=== PATIENT | male | born 1945 | race Hispanic/Latino ===

== ENCOUNTER → 2020-09-29 | Outpatient (CLI) | payer MEDICARE ==
[~2020-09-29] MED LIST: FENTANYL CITRATE/PF 100MCG/2 ML INJ ONE; MIDAZOLAM HCL 2 MG/2 ML VIAL ONE
[2020-09-29 09:15] LABS: HEMOGLOBIN 14.2 g/dL (14.0-18.0)
[2020-09-29 09:39] LABS: PARTIAL THROMBOPLASTIN TIME 27.5 seconds (23.8-35.5); PROTHROMBIN TIME 13.7 seconds (11.9-14.5)
== END ==
LOC: CT 08:59
PROVIDERS: ATTEND Urology
DX: C61 Malignant neoplasm of prostate (principal)
CPT/HCPCS: 20220; 36415; 77012; 85014; 85049; 85610; 85730; 88172; 88173; 88305; 88311; J2250; J3010; U0002; 99152; 99153

== ENCOUNTER 2021-01-26 05:15 | Inpatient (IN) | payer MEDICARE ==
[2021-01-23 13:38] LABS: BASOPHILS # (AUTO) 0.1 (0.0-0.1); BASOPHILS % 0.8 % (0.0-1.0); EOSINOPHILS % 0.5 % (0.0-6.0); HEMATOCRIT 39.3 % (38.2-49.6); HEMOGLOBIN 13.4 g/dL (14.0-18.0); LYMPHOCYTES # (AUTO) 2.8 (1.0-3.2); LYMPHOCYTES % 37.4 % (18.0-39.1); MEAN CORPUSCULAR HEMOGLOBIN 34.6 pg (28-32); MEAN CORPUSCULAR HGB CONC 34.1 g/dL (31-35); MEAN CORPUSCULAR VOLUME 101.6 fL (81-99); NEUTROPHILS # (AUTO) 3.7 (2.1-6.9); PLATELET COUNT 208 x10e3/uL (140-360); RED BLOOD COUNT 3.87 x10e6/uL (4.3-5.7); RED CELL DISTRIBUTION WIDTH 12.9 % (11.7-14.4)
[2021-01-23 13:59] LABS: ANION GAP 14.4 mmol/L (8-16); BLOOD UREA NITROGEN 20 mg/dL (7-26); BUN/CREATININE RATIO 21 (6-25); CALCIUM 9.3 mg/dL (8.4-10.2); CARBON DIOXIDE 26 mmol/L (22-29); CHLORIDE 109 mmol/L (98-107); CREATININE, SERUM 0.94 mg/dL (0.72-1.25); EST GLOMERULAR FILTRATION RATE > 60 ML/MIN (60-); GLUCOSE 96 mg/dL (74-118); POTASSIUM 4.4 mmol/L (3.5-5.1); SODIUM 145 mmol/L (136-145)
[~2021-01-26] VITALS: Ht 177.8 cm; Wt 95.7 kg
[~2021-01-26 05:15] MED LIST changes: +ASPIRIN81 MG PO; -FENTANYL CITRATE/PF 100MCG/2 ML INJ ONE; +LEVOXYL75 MCG; +LOSARTAN POTAS100 MG PO; -MIDAZOLAM HCL 2 MG/2 ML VIAL ONE
[2021-01-26] MEDS ORDERED: SODIUM CHLORIDE 0.9% 50ML 50 ML ONE (05:36)
[2021-01-26] MEDS ORDERED: CEFTRIAXONE SOD 1 GM VIAL ONE (05:36)
[2021-01-26] MEDS ORDERED: GENTAMICIN 80MG/NS 100 ML 200 ML IV ONE (05:36)
[2021-01-26] MEDS ORDERED: SODIUM CHLORIDE 0.9% 1000ML 1,000 ML ONE (05:36)
[2021-01-26] MEDS ORDERED: B&O 60MG R/S 60 MG SUPP PR ONE (06:34)
[2021-01-26] MEDS ORDERED: IOPAMIDOL 300MG/ML 50ML INFUS..BTL IV ONE (06:34)
[2021-01-26] MEDS ORDERED: D5.45%NS/KCL 20MEQ 1,000 ML IV SCH (10:00)
[2021-01-26] MEDS ORDERED: DIPHENHYDRAMINE HCL 25 MG CAP PO PRN (10:00)
[2021-01-26] MEDS ORDERED: B&O 60MG R/S 60 MG SUPP PR PRN (10:00)
[2021-01-26] MEDS ORDERED: PHENAZOPYRIDINE HCL 100 MG TAB PO PRN (10:00)
[2021-01-26] MEDS ORDERED: CEFTRIAXONE SOD 1 GM/50 ML BAG IV SCH (10:00)
[2021-01-26] MEDS ORDERED: ONDANSETRON HCL INJ 2MG/ML 2ML 2 MG/ML VIAL IV PRN (10:00)
[2021-01-26 10:54] LABS: BASOPHILS % 0.5 % (0.0-1.0); EOSINOPHILS % 0.2 % (0.0-6.0); HEMATOCRIT 41.8 % (38.2-49.6); LYMPHOCYTES # (AUTO) 1.2 (1.0-3.2); LYMPHOCYTES % 19.5 % (18.0-39.1); MEAN CORPUSCULAR HEMOGLOBIN 34.5 pg (28-32); MEAN CORPUSCULAR HGB CONC 33.5 g/dL (31-35); MONOCYTES # (AUTO) 0.1 (0.2-0.8); MONOCYTES % 2.1 % (4.4-11.3); NEUTROPHILS # (AUTO) 4.9 (2.1-6.9); NEUTROPHILS % 77.4 % (38.7-80.0); PLATELET COUNT 203 x10e3/uL (140-360); RED BLOOD COUNT 4.06 x10e6/uL (4.3-5.7); RED CELL DISTRIBUTION WIDTH 12.8 % (11.7-14.4)
[2021-01-26 11:18] LABS: BLOOD UREA NITROGEN 18 mg/dL (7-26); BUN/CREATININE RATIO 17 (6-25); CARBON DIOXIDE 27 mmol/L (22-29); CHLORIDE 106 mmol/L (98-107); CREATININE, SERUM 1.03 mg/dL (0.72-1.25); EST GLOMERULAR FILTRATION RATE > 60 ML/MIN (60-); GLUCOSE 171 mg/dL (74-118); SODIUM 142 mmol/L (136-145)
[2021-01-26 12:19] VITALS: BP 154/81
[2021-01-26 12:21] VITALS: BP 154/81
[2021-01-26] MEDS: DEXTROSE 5%/0.45% SOD CHL 1,000 ML IV SCH ×3 (12:45→23:34)
[2021-01-26] MEDS ORDERED: PROPOFOL IV EMULSION 10 MG/ML 20 ML VIAL ONE (13:40)
[2021-01-26] MEDS ORDERED: SEVOFLURANE INHAL SOLN 250 ML PEN BTL ONE (13:40)
[2021-01-26] MEDS ORDERED: EPHEDRINE SULFATE INJ 50 MG/ML VIAL ONE (13:40)
[2021-01-26] MEDS ORDERED: LIDOCAINE HCL 2% LOCAL INJ 5 ML SDV VIAL INJ ONE (13:40)
[2021-01-26] MEDS ORDERED: ONDANSETRON HCL INJ 2MG/ML 2ML 2 MG/ML VIAL ONE (13:40)
[2021-01-26] MEDS ORDERED: DEXAMETHASONE SOD PHOS INJ 4 MG/ML VIAL ONE (13:40)
[2021-01-26 14:37] VITALS: BP 154/81
[2021-01-26] MEDS ORDERED: MIDAZOLAM HCL 2 MG/2 ML VIAL ONE (14:39)
[2021-01-26] MEDS ORDERED: FENTANYL CITRATE/PF 100MCG/2 ML INJ ONE (14:39)
[2021-01-26 16:34] VITALS: BP 109/69
[2021-01-26] MEDS ORDERED: DOCUSATE SODIUM 100 MG CAP PO SCH (17:00)
[2021-01-26 20:00] VITALS: BP 137/67
[2021-01-26] MEDS: DOCUSATE SODIUM 100 MG CAP PO SCH (20:47)
[2021-01-26 21:19] VITALS: BP 137/67
[2021-01-26] MEDS: ACETAMINOPHEN/CODEINE 300MG - 30MG TAB PO PRN (23:35)
[2021-01-27] VITALS (8 sets, daily range): BP systolic 116–149; BP diastolic 58–81
[2021-01-27] MEDS: CEFTRIAXONE SOD 1 GM in SODIUM CHLORIDE 0.9% 50ML 50 ML IV SCH (06:00)
[2021-01-27] MEDS: DEXTROSE 5%/0.45% SOD CHL 1,000 ML IV SCH ×3 (06:15→23:15)
[2021-01-27 06:51] LABS: BASOPHILS % 0.2 % (0.0-1.0); HEMATOCRIT 39.6 % (38.2-49.6); HEMOGLOBIN 13.5 g/dL (14.0-18.0); LYMPHOCYTES # (AUTO) 2.2 (1.0-3.2); LYMPHOCYTES % 18.1 % (18.0-39.1); MEAN CORPUSCULAR HEMOGLOBIN 34.4 pg (28-32); MEAN CORPUSCULAR HGB CONC 34.1 g/dL (31-35); MEAN CORPUSCULAR VOLUME 100.8 fL (81-99); MONOCYTES # (AUTO) 1.1 (0.2-0.8); MONOCYTES % 9.1 % (4.4-11.3); NEUTROPHILS # (AUTO) 8.8 (2.1-6.9); NEUTROPHILS % 72.2 % (38.7-80.0); PLATELET COUNT 194 x10e3/uL (140-360); RED BLOOD COUNT 3.93 x10e6/uL (4.3-5.7); RED CELL DISTRIBUTION WIDTH 12.4 % (11.7-14.4)
[2021-01-27 07:09] LABS: BLOOD UREA NITROGEN 13 mg/dL (7-26); BUN/CREATININE RATIO 17 (6-25); CALCIUM 8.5 mg/dL (8.4-10.2); CARBON DIOXIDE 25 mmol/L (22-29); CHLORIDE 108 mmol/L (98-107); CREATININE, SERUM 0.75 mg/dL (0.72-1.25); EST GLOMERULAR FILTRATION RATE > 60 ML/MIN (60-); GLUCOSE 134 mg/dL (74-118); SODIUM 142 mmol/L (136-145)
[2021-01-27] MEDS ORDERED: CEFTRIAXONE SOD 1 GM in SODIUM CHLORIDE 0.9% 50ML 50 ML IV SCH (07:10)
[2021-01-27] MEDS: DOCUSATE SODIUM 100 MG CAP PO SCH ×2 (09:00→20:37)
[2021-01-27] MEDS: SENNOSIDES 8.6 MG TAB PO SCH ×2 (16:45→20:10)
[2021-01-28 00:23] VITALS: BP 141/80
[2021-01-28 04:00] VITALS: BP 131/79
[2021-01-28] MEDS: DEXTROSE 5%/0.45% SOD CHL 1,000 ML IV SCH ×2 (04:45→12:45)
[2021-01-28] MEDS: CEFTRIAXONE SOD 1 GM in SODIUM CHLORIDE 0.9% 50ML 50 ML IV SCH (05:13)
[2021-01-28] MEDS ORDERED: LEVOTHYROXINE SODIUM 75 MCG TAB PO SCH (06:00)
[2021-01-28 06:58] LABS: BASOPHILS # (AUTO) 0.1 (0.0-0.1); BASOPHILS % 0.6 % (0.0-1.0); EOSINOPHILS % 0.4 % (0.0-6.0); HEMATOCRIT 40.2 % (38.2-49.6); HEMOGLOBIN 13.8 g/dL (14.0-18.0); LYMPHOCYTES # (AUTO) 3.2 (1.0-3.2); LYMPHOCYTES % 28.8 % (18.0-39.1); MEAN CORPUSCULAR HEMOGLOBIN 35.1 pg (28-32); MEAN CORPUSCULAR HGB CONC 34.3 g/dL (31-35); MEAN CORPUSCULAR VOLUME 102.3 fL (81-99); MONOCYTES # (AUTO) 1.1 (0.2-0.8); MONOCYTES % 10.1 % (4.4-11.3); NEUTROPHILS # (AUTO) 6.6 (2.1-6.9); NEUTROPHILS % 59.7 % (38.7-80.0); PLATELET COUNT 199 x10e3/uL (140-360); RED BLOOD COUNT 3.93 x10e6/uL (4.3-5.7); RED CELL DISTRIBUTION WIDTH 12.7 % (11.7-14.4)
[2021-01-28 07:46] LABS: BLOOD UREA NITROGEN 14 mg/dL (7-26); BUN/CREATININE RATIO 17 (6-25); CALCIUM 8.8 mg/dL (8.4-10.2); CARBON DIOXIDE 26 mmol/L (22-29); CHLORIDE 106 mmol/L (98-107); CREATININE, SERUM 0.83 mg/dL (0.72-1.25); EST GLOMERULAR FILTRATION RATE > 60 ML/MIN (60-); GLUCOSE 113 mg/dL (74-118); SODIUM 141 mmol/L (136-145)
[2021-01-28 08:42] VITALS: BP 128/76
[2021-01-28] MEDS: DOCUSATE SODIUM 100 MG CAP PO SCH (09:00)
[2021-01-28] MEDS ORDERED: LOSARTAN POTASSIUM 100 MG TAB PO SCH (09:00)
[2021-01-28] MEDS: SENNOSIDES 8.6 MG TAB PO SCH (09:00)
[2021-01-28] MEDS: ACETAMINOPHEN/CODEINE 300MG - 30MG TAB PO PRN ×2 (10:12→16:33)
[2021-01-28 13:13] VITALS: BP 130/82
[2021-01-28 13:30] VITALS: BP 130/82
[2021-01-28] MEDS ORDERED: LEVOFLOXACIN250 MG PO (15:21)
[2021-01-28] MEDS ORDERED: TYLENOL # 31 EA PO (15:23)
[2021-01-28 16:48] VITALS: BP 126/86
== END 2021-01-28 17:40 | disposition home or self-care (01) | DRG 714 ==
LOC: OR 05:15 → PACU V 11:01 → MED/SURG 11:46
PROVIDERS: ADMIT Internal Medicine; ATTEND Internal Medicine
PROC: 0V508ZZ Destruction of Prostate, Via Natural or Artificial Opening Endoscopic (ICD-10-PCS; principal; 2021-01-26 07:00)
PROC: BT141ZZ Fluoroscopy of Kidneys, Ureters and Bladder using Low Osmolar Contrast (ICD-10-PCS; 2021-01-26 07:00)
DX: N40.1 Benign prostatic hyperplasia with lower urinary tract symptoms (principal); C61 Malignant neoplasm of prostate; R39.14 Feeling of incomplete bladder emptying; R31.29 Other microscopic hematuria; Z80.42 Family history of malignant neoplasm of prostate; N50.0 Atrophy of testis; N18.9 Chronic kidney disease, unspecified; E29.1 Testicular hypofunction; I10 Essential (primary) hypertension; E66.9 Obesity, unspecified; Z68.30 Body mass index [BMI] 30.0-30.9, adult; Z20.822 Contact with and (suspected) exposure to COVID-19; E03.9 Hypothyroidism, unspecified; Z87.891 Personal history of nicotine dependence
CPT/HCPCS: 36415; 71046; 74420; 80048; 83735; 85025; 86850; 86900; 93005; C1758; J0696; J1100; J1580; J2001; J2250; J2405; J3010; J7030; U0002